=== PATIENT | male | born 1945 | race Caucasian/White ===

== ENCOUNTER 2016-09-19 23:43 | Inpatient (IN) | payer MEDICARE, OTHER ==
[~2016-09-19 23:43] MED LIST: ALDACTONE25 M1 PO; ASPIR 8181 M1 PO; BYSTOLIC2.5 M1 PO; CARDIZEM LA120 M1 PO; CIPRO500 M2 PO; CRESTOR10 MG/TAB PO; FLEXERIL10 MG PO; FLONASE ALLERG9.9 ML NS; FUROSEMIDE20 M1 PO; HYDROCHLOROTHIA25 M1 PO; LEVAQUIN750 M1 PO; LIPITOR20 MG; LISINOPRIL-HCT1 EAC1 PO; LORCET 5-325 M1 EAC1 PO; MEDROL4 M1 PO; METOPROLOL TART25 M1 PO; MULTIVITAMINS1 EAC6 PO; NASONEX17 G1 NS; NORCO 5/325 TAB1 TAB PO; PAMELOR25 M1 PO; PAXIL10 M1 PO; PLAVIX75 M1 PO; PRAVACHOL40 M1 PO; PRILOSEC20 M1 PO; PRILOSEC20 MG; PRILOSEC20 MG PO; VITAMIN C1000 M1 PO; VITAMIN D1000 UNI3 PO
[2016-09-20] MEDS ORDERED: GABAPENTIN800 M2 PO ×2 (03:05→11:52)
[2016-09-20] MEDS ORDERED: NEURONTIN800 M1 PO (03:14)
[2016-09-20 03:17] LABS: INR 1.1 INR (0.9-1.1); PROTHROMBIN TIME 12.2 SECONDS (9.0-13.6)
[2016-09-20] MEDS ORDERED: ALLOPURINOL300 M1 PO (03:20)
[2016-09-20] MEDS ORDERED: CARTIA XT120 M1 PO (03:21)
[2016-09-20] MEDS ORDERED: PROZAC20 M3 PO (03:21)
[2016-09-20 03:22] LABS: BASO % 0.3 % (0-2); EOS % 1.1 % (0-7); EOSINOPHIL ABSOLUTE COUNT 0.1 tho/cmm (0.0-0.7); HCT-HEMATOCRIT 42.3 % (36.0-53.5); IMMATURE GRANULOCYTES ABSOLUTE 0.02 tho/cmm (0-0.03); IMMATURE GRANULOCYTES PERCENT 0.2 % (0-0.3); LYMPH % 13.2 % (20-45); LYMPH ABSOLUTE COUNT 1.2 tho/cmm (0.8-4.5); MCH (MEAN CORPUSCULAR HGB) 29.9 pg (28.0-32.0); MCHC MEAN CORPUSCULAR HGB CONC 33.1 % (32.0-36.0); MCV (MEAN CELL VOLUME) 90.4 fl (82.0-96.0); MEAN PLATELET VOLUME 10.8 cmc (9.4-12.4); MONO % 10.4 % (0-12); NEUTROPHIL ABSOLUTE COUNT 6.8 tho/cmm (1.6-8.0); NEUTROPHIL-AUTOMATED 6.8 tho/cmm (1.6-8.0); NEUTROPHILS % 74.8 % (40-80); PLATELET COUNT 191 tho/cmm (150-450); RED BLOOD COUNT 4.68 mil/cmm (4.40-5.70); RED CELL DISTRIBUTION WIDTH 13.5 % (12.4-16.4); WHITE BLOOD COUNT 9.1 tho/cmm (4.0-10.0)
[2016-09-20] MEDS ORDERED: LIPITOR40 M1 PO (03:22)
[2016-09-20] MEDS ORDERED: PLAVIX75 M1 PO (03:23)
[2016-09-20] MEDS ORDERED: POTASSIUM CHLO20 ME3 PO (03:25)
[2016-09-20 03:26] LABS: ALBUMIN 3.5 g/dl (3.5-5.0); ALKALINE PHOSPHATASE 144 U/L (33-138); ALT/SGPT 30 U/L (12-78); ANION GAP 15 mmol/L (0-20); AST/SGOT 18 U/L (10-40); BILIRUBIN,TOTAL 0.8 mg/dl (0.0-1.5); BLOOD UREA NITROGEN 14 mg/dl (6-24); C-REACTIVE PROTEIN 1.7 mg/dl (0-0.9); CALCIUM 8.5 mg/dl (8.5-10.5); CARBON DIOXIDE-VENOUS 23 mmol/L (22-32); CHLORIDE 107 mmol/l (96-110); CREATININE 1.07 mg/dl (0.60-1.30); GLUCOSE 121 mg/dL (70-110); POTASSIUM 4.1 mmol/L (3.7-5.1); SODIUM 141 mmol/L (135-145); eGFR VALUE FOR BLACK 81 mL/Min
[2016-09-20 03:32] LABS: ESR-ERYTHROCYTE SED RATE 8 mm/hr (0-20)
[2016-09-20 03:40] LABS: PROCALCITONIN <0.05 ng/ml (0.05-0.09)
[2016-09-20] MEDS ORDERED: GLUCOPHAGE500 M3 PO (10:40)
[2016-09-20] MEDS ORDERED: LASIX20 M1 PO (11:52)
[2016-09-20] MEDS ORDERED: IPRATROPIUM BRO15 M1 (11:53)
[2016-09-20 15:23] LABS: CSF GLUCOSE 67 mg/dl (40-75)
[2016-09-20 15:26] LABS: CSF TUBE NUMBER CSF TUBE 1
[2016-09-20 15:27] LABS: CSF APPEARANCE CLEAR (CLEAR); CSF COLOR COLORLESS (COLORLESS); CSF RBC CT 10 cmm (0); CSF WBC CT 5 cmm (0-10)
[2016-09-22 06:03] LABS: ANION GAP 14 mmol/L (0-20); BLOOD UREA NITROGEN 13 mg/dl (6-24); CALCIUM 8.6 mg/dl (8.5-10.5); CARBON DIOXIDE-VENOUS 23 mmol/L (22-32); CHLORIDE 104 mmol/l (96-110); CREATININE 1.35 mg/dl (0.60-1.30); POTASSIUM 4.1 mmol/L (3.7-5.1); SODIUM 137 mmol/L (135-145); eGFR VALUE FOR BLACK 61 mL/Min
[2016-09-22 06:08] LABS: GLUCOSE 305 mg/dL (70-110)
[2016-09-23 05:20] LABS: ANION GAP 13 mmol/L (0-20); BLOOD UREA NITROGEN 19 mg/dl (6-24); CALCIUM 8.1 mg/dl (8.5-10.5); CARBON DIOXIDE-VENOUS 26 mmol/L (22-32); CHLORIDE 102 mmol/l (96-110); CREATININE 1.27 mg/dl (0.60-1.30); GLUCOSE 272 mg/dL (70-110); SODIUM 137 mmol/L (135-145); eGFR VALUE FOR BLACK 65 mL/Min
[2016-09-23] MEDS ORDERED: CIPRO500 M2 PO (11:55)
[2016-09-23] MEDS ORDERED: DELTASONE20 MG PO (11:59)
[2016-09-23] MEDS ORDERED: GLUCOTROL5 M1 PO (16:53)
== END 2016-09-23 18:20 | disposition home health service (06) | DRG 689 ==
LOC: PCUA 23:43
PROVIDERS: Internal Medicine; Psychiatry & Neurology Neurology; Registered Nurse; ADMIT Hospitalist
PROC: 009U3ZX Drainage of Spinal Canal, Percutaneous Approach, Diagnostic (ICD-10-PCS; principal; 2016-09-20)
DX: N39.0 Urinary tract infection, site not specified (principal); G92 Toxic encephalopathy; E11.9 Type 2 diabetes mellitus without complications; B96.5 Pseudomonas (aeruginosa) (mallei) (pseudomallei) as the cause of diseases classified elsewhere; K52.1 Toxic gastroenteritis and colitis; I10 Essential (primary) hypertension; F32.9 Major depressive disorder, single episode, unspecified; B34.9 Viral infection, unspecified; E78.5 Hyperlipidemia, unspecified; I25.10 Atherosclerotic heart disease of native coronary artery without angina pectoris; I73.9 Peripheral vascular disease, unspecified; K21.9 Gastro-esophageal reflux disease without esophagitis; E66.9 Obesity, unspecified; R33.9 Retention of urine, unspecified; M10.9 Gout, unspecified; R10.9 Unspecified abdominal pain; Z95.1 Presence of aortocoronary bypass graft; Z87.891 Personal history of nicotine dependence; Z87.11 Personal history of peptic ulcer disease; Z88.5 Allergy status to narcotic agent; Z79.02 Long term (current) use of antithrombotics/antiplatelets; Z79.84 Long term (current) use of oral hypoglycemic drugs; Z79.899 Other long term (current) drug therapy; T38.3X5A Adverse effect of insulin and oral hypoglycemic [antidiabetic] drugs, initial encounter; Y92.239 Unspecified place in hospital as the place of occurrence of the external cause
CPT/HCPCS: A9577; G8996-GN-CI; G8997-GN-CH; J1815; J2543; J7030; J7512